=== PATIENT | male | born 1995 | race American Indian/Alaskan Native ===

== ENCOUNTER 2020-09-11 01:44 | Emergency (ER) | payer SELFPAY ==
[2020-09-11 02:31] VITALS: BP 124/71
[2020-09-11] MEDS ORDERED: ACETAMINOPHEN 325 MG TAB PO ONE (02:31)
[2020-09-11] MEDS ORDERED: ACETAMINOPHEN 325 MG TAB ONE (02:31)
[2020-09-11] MEDS ORDERED: HYDROmorphone 1 MG/1 ML INJ IV ONE (03:01)
[2020-09-11] MEDS ORDERED: LIDOCAINE (2%) 20 MG/1 ML VIAL 20 ML MDV INFILTRATI ONE (03:01)
[2020-09-11] MEDS ORDERED: KETOROLAC 30 MG/1 ML INJ IV ONE (03:01)
--- NOTE | 2020-09-11 03:10 | XRay Report ---
Left shoulder 2 views INDICATION: Left shoulder pain IMPRESSION: Anterior inferior dislocation of the left shoulder. Signer Name: Axel Mullen MD Signed: 09/11/2020 3:06 AM Workstation Name: [id number]
--- NOTE | 2020-09-11 03:32 | Emergency Department Report ---
ED Extremity Problem HPI - General Chief complaint: Shoulder Injury Stated complaint: POSS DISLOCATED SHOULDER Time Seen by Provider: 09/11/20 03:01 Source: patient Mode of arrival: Ambulatory Limitations: No Limitations - History of Present Illness Initial comments: Patient is a 25-year-old F [place] male who suffered a dislocation to the left shoulder while playing basketball. He attempted to go to sleep as he did not want to come to the hospital but the pain was to much to bear. Try some maneuvers at home to try to get the shoulder go back him but was unsuccessful. The first time this had a shoulder dislocation. Pain is estimated 8 out of 10 in severity and is worse with movement any movement and better with rest. Severity scale (0 -10): 10 - Related Data Previous Rx's Medication Instructions Recorded Last Taken Type Ketorolac [Toradol] 10 mg PO Q6H PRN #12 tablet 09/11/20 Unknown Rx methOCARBAMOL [Robaxin TAB] 500 mg PO Q6H PRN #14 tablet 09/11/20 Unknown Rx Allergies Allergy/AdvReac Type Severity Reaction Status Date / Time No Known Allergies Allergy Verified 09/11/20 02:41 ED Review of Systems ROS: Stated complaint: POSS DISLOCATED SHOULDER Other details as noted in HPI Comment: All other systems reviewed and negative ED Past Medical Hx - Past Medical History Previous Medical History?: No - Surgical History Past Surgical History?: No - Social History Smoking Status: Current Every Day Smoker Substance Use Type: Marijuana - Medications Home Medications: Home Medications Medication Instructions Recorded Confirmed Last Taken Type Ketorolac [Toradol] 10 mg PO Q6H PRN #12 tablet 09/11/20 Unknown Rx methOCARBAMOL [Robaxin TAB] 500 mg PO Q6H PRN #14 tablet 09/11/20 Unknown Rx ED Physical Exam - General Limitations: No Limitations General appearance: alert, in no apparent distress - Head Head exam: Present: atraumatic, normocephalic - Eye Eye exam: Present: normal appearance, PERRL - ENT ENT exam: Present: mucous membranes moist - Neck Neck exam: Present: normal inspection - Respiratory Respiratory exam: Present: normal lung sounds bilaterally. Absent: respiratory distress, wheezes, rales, rhonchi - Cardiovascular Cardiovascular Exam: Present: regular rate, normal rhythm. Absent: systolic murmur, diastolic murmur, rubs, gallop - GI/Abdominal GI/Abdominal exam: Present: soft, normal bowel sounds. Absent: distended, tenderness - Rectal Rectal exam: Present: deferred - Extremities Exam Extremities exam: Present: normal inspection - Expanded Upper Extremity Exam Left Shoulder Exam: Present: tenderness, deformity (Deltoid), dislocation. Absent: full ROM, swelling, abrasion, laceration - Back Exam Back exam: Present: normal inspection - Neurological Exam Neurological exam: Present: alert, oriented X3 - Psychiatric Psychiatric exam: Present: normal affect, normal mood - Skin Skin exam: Present: warm, dry, intact, normal color. Absent: rash ED Course Vital Signs 09/11/20 02:28 Temperature 98.3 F Pulse Rate 85 Respiratory 18 Rate Blood Pressure 124/71 O2 Sat by Pulse 95 Oximetry - Orthopedic Joint Reduction Joint #1 Consent Obtained: verbal consent Time Out Performed: Yes Side: left Joint Reduction Location: shoulder Analgesia: none Local Anesthetic Used: Lidocaine 2% (Lidocaine was injected into the joint capsule) Amount of Anesthetic Used (mls): 10 Shoulder Technique Used (if applicable): Renata Post-Reduction Neuro Exam: intact Post-Reduction Vascular Exam: intact Post Reduction X-Ray Obtained: No Splint Applied: Yes Patient Tolerated Procedure: well ED Medical Decision Making - Radiology Data [facility] [address] [place] [address] XRay Report Signed Patient: NANCY OCHOA MR#: [id number] 0 : 1995 Acct:[id number] Age/Sex: 25 / M ADM Date: 09/11/20 Loc: ED Attending Dr: Ordering Physician: FRANCIS STARK MD Date of Service: 09/11/20 Procedure(s): XR shoulder 2+V LT Accession Number(s): [id number] cc: FRANCIS STARK MD Fluoro Time In Minutes: Left shoulder 2 views INDICATION: Left shoulder pain IMPRESSION: Anterior inferior dislocation of the left shoulder. Signer Name: Axel Mullen MD Signed: 09/11/2020 3:06 AM - Medical Decision Making Patient had a very successful nontraumatic reduction of his left shoulder. Deltoid deformity gone after the procedure. Patient put in a shoulder immobilizer and be discharged home Critical care attestation.: If time is entered above; I have spent that time in minutes in the direct care of this critically ill patient, excluding procedure time. ED Disposition Clinical Impression: Anterior shoulder dislocation Qualifiers: Encounter type: initial encounter Laterality: left Qualified Code(s): S43.015A - Anterior dislocation of left humerus, initial encounter Disposition: TO HOME OR SELFCARE Is pt being admited?: No Does the pt Need Aspirin: No Condition: Stable Instructions: How to Use a Shoulder Immobilizer, Shoulder Dislocation, [id number] Referrals: MARK PABON MD [Staff Physician] - 3-5 Days Time of Disposition: 03:46
== END 2020-09-11 03:50 | disposition home or self-care (01) ==
LOC: ED 01:44
DX: S43.005A Unspecified dislocation of left shoulder joint, initial encounter (principal); F17.200 Nicotine dependence, unspecified, uncomplicated; F12.90 Cannabis use, unspecified, uncomplicated; Z79.899 Other long term (current) drug therapy; X58.XXXA Exposure to other specified factors, initial encounter; Y93.67 Activity, basketball; Y92.89 Other specified places as the place of occurrence of the external cause; Y99.8 Other external cause status
CPT/HCPCS: 23650; 73030; 96374; 96375; 99283; J1170; J1885